=== PATIENT | male | born 1990 | race African-American/Black ===

== ENCOUNTER 2021-05-14 10:23 | Emergency (ER) | payer OTHER ==
[~2021-05-14] VITALS: Ht 182.9 cm; Wt 63.5 kg
[2021-05-14 10:26] VITALS: BP 131/76
[2021-05-14] MEDS ORDERED: CEPHALEXIN500 MG PO (11:06)
== END 2021-05-14 11:06 | disposition home or self-care (01) ==
LOC: ER 10:23
DX: L03.011 Cellulitis of right finger (principal)